=== PATIENT | female | born 1995 | race Caucasian/White ===

== ENCOUNTER → 2017-08-28 | Outpatient (CLI) | payer OTHER ==
[2014-11-20 13:53] VITALS: BP 133/68
[~2017-08-28] MED LIST: DEXT30TA2 PO; MEDR150V IM
== END | disposition home or self-care (01) ==
LOC: LAB 10:31
DX: N92.1 Excessive and frequent menstruation with irregular cycle (principal)
CPT/HCPCS: 36415; 84702

== ENCOUNTER → 2017-09-03 | Outpatient (CLI) | payer OTHER ==
[2014-11-20 13:53] VITALS: BP 133/68
== END | disposition home or self-care (01) ==
LOC: LAB 07:45
DX: N92.1 Excessive and frequent menstruation with irregular cycle (principal)
CPT/HCPCS: 36415; 84702

== ENCOUNTER 2018-04-02 11:52 | Emergency (ER) | payer OTHER | END 2018-04-02 13:08 | disposition home or self-care (01) | LOC: ER 11:52 | DX: S43.102A Unspecified dislocation of left acromioclavicular joint, initial encounter (principal); X50.0XXA Overexertion from strenuous movement or load, initial encounter; Y93.89 Activity, other specified; Y99.8 Other external cause status; Y92.89 Other specified places as the place of occurrence of the external cause | CPT/HCPCS: 99282 ==

== ENCOUNTER → 2018-10-17 | Outpatient (CLI) | payer OTHER ==
[2018-04-02 12:33] VITALS: BP 141/78
[~2018-10-17] MED LIST changes: +NAPR-514 PO
[2018-10-17 15:41] LABS: BASO # 0.1 x10^3/uL (0.0-0.2); BASO % 0 % (0-3); EOS # 0.2 x10^3/uL (0.0-0.7); EOS % 1 % (0-3); HEMOGLOBIN 12.7 g/dL (12.0-15.5); LYMPH # 2.7 x10^3/uL (1.0-4.8); LYMPH % 15 % (24-48); MEAN CORPUSCULAR HEMOGLOBIN 30 pg (25-35); MEAN CORPUSCULAR HGB CONC 34 g/dL (31-37); MEAN CORPUSCULAR VOLUME 87 fL (79-100); MONO # 1.1 x10^3/uL (0.0-1.1); MONO % 6 % (0-9); NEUT # 13.9 x10^3uL (1.8-7.7); NEUT % 78 % (31-73); PLATELET COUNT 234 x10^3/uL (140-400); RED BLOOD COUNT 4.27 x10^6/uL (3.50-5.40); RED CELL DISTRIBUTION WIDTH 13.9 % (11.5-14.5); WHITE BLOOD COUNT 17.9 x10^3/uL (4.0-11.0)
[2018-10-17 17:03] LABS: % EOS 1 % (0-5); % LYMPHS 25 % (24-48); % MONOS 6 % (0-10); % SEGS 68 % (35-66)
[2018-10-17 17:13] LABS: PLT ESTIMATE ADEQUATE (ADEQUATE)
== END | disposition home or self-care (01) ==
LOC: LAB 14:13
PROVIDERS: ATTEND Obstetrics & Gynecology
DX: O36.0120 Maternal care for anti-D [Rh] antibodies, second trimester, not applicable or unspecified (principal); Z3A.00 Weeks of gestation of pregnancy not specified
CPT/HCPCS: 36415; 82947; 82950; 85007; 85025; 86850; 86900; 86901; 96372; J2791

== ENCOUNTER 2018-12-18 11:05 | Observation (INO) | payer OTHER ==
[2018-04-02 12:33] VITALS: BP 141/78
[2018-12-18 12:13] LABS: BASO % 0 % (0-3); EOS # 0.1 x10^3/uL (0.0-0.7); EOS % 1 % (0-3); HEMATOCRIT 37.3 % (36.0-47.0); HEMOGLOBIN 12.3 g/dL (12.0-15.5); LYMPH # 2.2 x10^3/uL (1.0-4.8); LYMPH % 15 % (24-48); MEAN CORPUSCULAR HEMOGLOBIN 28 pg (25-35); MEAN CORPUSCULAR HGB CONC 33 g/dL (31-37); MEAN CORPUSCULAR VOLUME 84 fL (79-100); MONO # 1.2 x10^3/uL (0.0-1.1); MONO % 8 % (0-9); NEUT # 11.2 x10^3uL (1.8-7.7); NEUT % 76 % (31-73); PLATELET COUNT 229 x10^3/uL (140-400); RED BLOOD COUNT 4.43 x10^6/uL (3.50-5.40); WHITE BLOOD COUNT 14.7 x10^3/uL (4.0-11.0)
[2018-12-18 12:33] LABS: ALBUMIN 2.3 g/dL (3.4-5.0); ALBUMIN/GLOBULIN RATIO 0.6 (1.0-1.7); CALCIUM 9.1 mg/dL (8.5-10.1); CREATININE 0.5 mg/dL (0.6-1.0); GFR 154.3; POTASSIUM 3.6 mmol/L (3.5-5.1); TOTAL BILIRUBIN 0.3 mg/dL (0.2-1.0); URIC ACID 3.7 mg/dL (2.6-6.0)
== END 2018-12-18 13:05 | disposition home or self-care (01) ==
LOC: 3 SO LND 11:05
PROVIDERS: ADMIT Obstetrics & Gynecology; ATTEND Obstetrics & Gynecology
DX: Z34.93 Encounter for supervision of normal pregnancy, unspecified, third trimester (principal); Z3A.37 37 weeks gestation of pregnancy
CPT/HCPCS: 36415; 80053; 84550; 85025; G0378; G0379

== ENCOUNTER 2018-12-25 11:11 | Inpatient (IN) | payer OTHER ==
[~2018-12-25] VITALS: Ht 172.7 cm; Wt 104.3 kg
[2018-12-25] MEDS ORDERED: LIDOCAINE 1% PF 30 ML VIAL. INJ PRN (11:45)
[2018-12-25] MEDS ORDERED: 0.9 % SODIUM CHLORIDE 10 ML DISP.SYRIN. IV PRN ×2 (11:45→19:15)
[2018-12-25] MEDS ORDERED: OXYTOCIN 30 UNIT/500 ML PREMIX 500 ML IV PRN ×3 (11:45→19:15)
[2018-12-25 12:15] LABS: BILIRUBIN,URINE NEGATIVE (NEG); CLARITY,URINE CLEAR; COLOR,URINE YELLOW; NITRITE,URINE NEGATIVE (NEG); PROTEIN,URINE NEGATIVE (NEG-TRACE)
--- NOTE | 2018-12-25 12:16 | PDOC1 ---
OB - History Hx of Present Care: Good Care Ultrasounds: Normal mid trimester US Obstetrical Complications: Gestational Hypertension Medical Complications: None Past Family/Social History * Past Medical, Surgical, Family and Obstetric Histories reviewed from chart. Rubella: Immune RPR/VDRL: Negative GBS Status: Negative HBsAG: Negative OB - Chief Complaint & HPI Date of Admission: Date of Admission: Dec 25, 2018 at 11:11 Chief Complaint/History : 2 Para: 0 EGA: 38 Reason for admission: induction of labor (Gestational HTN) Indication for induction: other (Gestational HTN) Admission Nurse Assessment Rev: Yes OB - Admission Exam Physical Exam HEENT: Normal Heart: Regular Rate Lungs: Clear Abdomen: Gravid, Non tender, Soft Extremities: Edema Reflexes: Normal Cervical Dilatation: 3cm Effacement: 75% Station: -3 Membranes: Intact Heart Rate: Normal Accelerations: Accelerations Present Decelerations: No decelerations Contractions on Admission: >10 Minutes Apart Intensity: Mild Text A: 38 wks IUP Gestational HTN Nicotine addiction P: Admit for IOL secondary Gestational HTN. Start Pitocin. Check labs for possible preeclampsia. WALTER CHANDLER Jr, MD Dec 25, 2018 12:16
[2018-12-25 12:25] LABS: BASO % 0 % (0-3); EOS # 0.2 x10^3/uL (0.0-0.7); EOS % 2 % (0-3); HEMATOCRIT 37.6 % (36.0-47.0); HEMOGLOBIN 12.5 g/dL (12.0-15.5); LYMPH # 2.7 x10^3/uL (1.0-4.8); LYMPH % 19 % (24-48); MEAN CORPUSCULAR HEMOGLOBIN 28 pg (25-35); MEAN CORPUSCULAR HGB CONC 33 g/dL (31-37); MEAN CORPUSCULAR VOLUME 84 fL (79-100); MONO # 1.1 x10^3/uL (0.0-1.1); MONO % 8 % (0-9); NEUT # 10.2 x10^3uL (1.8-7.7); NEUT % 71 % (31-73); PLATELET COUNT 245 x10^3/uL (140-400); RED BLOOD COUNT 4.45 x10^6/uL (3.50-5.40); RED CELL DISTRIBUTION WIDTH 14.1 % (11.5-14.5); WHITE BLOOD COUNT 14.3 x10^3/uL (4.0-11.0)
[2018-12-25] MEDS: IV RINGERS,LACTATED 1000ML 1,000 ML IV PRN ×2 (12:25→14:55)
[2018-12-25 12:26] LABS: SQUAMOUS EPITHELIAL CELL,UR MANY /LPF
[2018-12-25 12:27] LABS: BACTERIA,URINE MANY /HPF (0-FEW); WBC,URINE 20-40 /HPF (0-4)
[2018-12-25 12:31] LABS: CALCIUM 9.6 mg/dL (8.5-10.1); CREATININE 0.5 mg/dL (0.6-1.0); GFR 154.3; POTASSIUM 4.1 mmol/L (3.5-5.1)
[2018-12-25 12:38] LABS: ALBUMIN 2.5 g/dL (3.4-5.0); ALBUMIN/GLOBULIN RATIO 0.7 (1.0-1.7); TOTAL BILIRUBIN 0.2 mg/dL (0.2-1.0); TOTAL PROTEIN 5.9 g/dL (6.4-8.2)
[2018-12-25] MEDS ORDERED: PANTOPRAZOLE IV PUSH 40 MG VIAL. IVP PRN (12:45)
[2018-12-25] MEDS ORDERED: PANTOPRAZOLE IV PUSH 40 MG VIAL. IVP ONE (13:00)
[2018-12-25] MEDS: fentaNYL PF VIAL 100 MCG/2 ML VIAL IV PRN ×2 (14:06→15:16)
[2018-12-25] MEDS ORDERED: ePHEDrine PF IN SALINE 50 MG/5 ML DISP.SYRIN IV PRN (14:45)
[2018-12-25] MEDS ORDERED: fentaNYL PF VIAL 100 MCG/2 ML VIAL EPI ONE (14:45)
[2018-12-25] MEDS ORDERED: ONDANSETRON PF 4 MG/2 ML VIAL. IV PRN (14:45)
[2018-12-25] MEDS ORDERED: NALOXONE 0.4 MG/ML VIAL. IV PRN (14:45)
[2018-12-25] MEDS ORDERED: ROPIVacaine 0.2% IN 0.9%NACL PF 40 MG/20 ML DISP.SYRIN. ONE ×2 (14:50→15:00)
[2018-12-25] MEDS ORDERED: L&D EPIDURAL SYRINGE 50 ML ONE (14:50)
[2018-12-25] MEDS: L&D EPIDURAL SYRINGE 50 ML EPID PRN ×2 (15:16→18:20)
[2018-12-25 16:08] VITALS: BP 172/95
--- NOTE | 2018-12-25 19:14 | PDOC ---
VAGINAL DELIVERY DATE DATE: 12/25/18 TIME: 19:13 : 2 Para: 1 EGA: 38 VAGINAL DELIVERY: VTX VACCUM ASSISTED: No PLACENTA: Spontaneous 8/9 SEX: Female WEIGHT Weight [pending ] Nuchal Cord: Yes, Times 1 Amniotic Fluid: Clear PAIN: Epidural EPISIOTOMY: No EXTENSION: No EBL 300 ml COMPLICATIONS none CONDITION pt. stable Signs of Intrauterine Infectio: None Shoulder Dystocia: No WALTER CHANDLER Jr, MD Dec 25, 2018 19:14
[2018-12-25] MEDS ORDERED: PHENYLEPH/MINERAL OIL/PETROLAT RECTAL OINTMENT 28GM TUBE. RC PRN (19:15)
[2018-12-25] MEDS ORDERED: IBUPROFEN 400 MG TABLET. PO PRN (19:15)
[2018-12-25] MEDS ORDERED: MAG HYDROX/ALUMINUM HYD/SIMETH 30 ML ORAL.SUSP PO PRN (19:15)
[2018-12-25] MEDS ORDERED: ZOLPIDEM 5 MG TABLET. PO PRN (19:15)
[2018-12-25] MEDS ORDERED: oxyCODONE/APAP 5/325 1 TAB TABLET PO PRN (19:15)
[2018-12-25] MEDS ORDERED: SIMETHICONE 80 MG TAB.CHEW PO PRN (19:15)
[2018-12-25] MEDS ORDERED: MAGNESIUM HYDROXIDE 2,400 MG/30 ML ORAL.SUSP. PO PRN (19:15)
[2018-12-25] MEDS ORDERED: HYDROCORTISONE 1% TOPICAL OINTMENT 30GM TUBE. TP PRN (19:15)
[2018-12-25] MEDS ORDERED: diphenhydrAMINE HCL 25 MG CAPSULE PO PRN (19:15)
[2018-12-25] MEDS ORDERED: BENZOCAINE 20% TOPICAL AEROSOL SPRAY 57GM CAN. TP PRN (19:15)
[2018-12-25] MEDS ORDERED: DOCUSATE SODIUM 100 MG CAPSULE. PO PRN (19:15)
[2018-12-25] MEDS ORDERED: MMR per PROTOCOL. MC PRN (19:15)
[2018-12-25] MEDS ORDERED: ACETAMINOPHEN 325 MG TABLET. PO PRN (19:15)
[2018-12-25 21:09] LABS: UR PROTEIN RD 19.8 mg/dL (Not Estab.)
[2018-12-25] MEDS: IBUPROFEN 400 MG TABLET. PO PRN (22:16)
[2018-12-25 22:45] VITALS: BP 105/56
[2018-12-25 23:45] VITALS: BP 98/47
[2018-12-26] MEDS: IBUPROFEN 400 MG TABLET. PO PRN ×3 (06:16→19:59)
[2018-12-26 06:20] VITALS: BP 95/55
[2018-12-26 07:18] LABS: BASO % 0 % (0-3); EOS # 0.2 x10^3/uL (0.0-0.7); EOS % 1 % (0-3); HEMATOCRIT 36.3 % (36.0-47.0); HEMOGLOBIN 12.2 g/dL (12.0-15.5); LYMPH # 3.8 x10^3/uL (1.0-4.8); LYMPH % 24 % (24-48); MEAN CORPUSCULAR HEMOGLOBIN 28 pg (25-35); MEAN CORPUSCULAR HGB CONC 34 g/dL (31-37); MEAN CORPUSCULAR VOLUME 85 fL (79-100); MONO # 1.5 x10^3/uL (0.0-1.1); MONO % 9 % (0-9); NEUT # 10.2 x10^3uL (1.8-7.7); NEUT % 65 % (31-73); PLATELET COUNT 195 x10^3/uL (140-400); RED BLOOD COUNT 4.29 x10^6/uL (3.50-5.40); RED CELL DISTRIBUTION WIDTH 14.5 % (11.5-14.5); WHITE BLOOD COUNT 15.7 x10^3/uL (4.0-11.0)
[2018-12-26] MEDS ORDERED: FERROUS SULFATE 325 MG TABLET. PO SCH (08:00)
--- NOTE | 2018-12-26 10:05 | PDOC ---
OB Progress Note Date of Service 12/26/18 Time of Evaluation 1004 Notes Pt. feeling well. No complaints. Lab Laboratory Tests Test 12/25/18 11:45 12/25/18 12:07 12/26/18 05:30 Urine Collection Type Unknown Urine Color Yellow Urine Clarity Clear Urine pH 6.0 Urine Specific Ashby 1.020 Urine Protein 19.8 mg/dL (Not Estab.) Urine Glucose (UA) Negative mg/dL (NEG) Urine Ketones (Stick) Negative mg/dL (NEG) Urine Blood Negative (NEG) Urine Nitrite Negative (NEG) Urine Bilirubin Negative (NEG) Urine Urobilinogen Dipstick 1.0 mg/dL (0.2 mg/dL) Urine Leukocyte Esterase Moderate (NEG) Urine RBC 1-2 /HPF (0-2) Urine WBC 20-40 /HPF (0-4) Urine Squamous Epithelial Cells Many /LPF Urine Bacteria Many /HPF (0-FEW) Urine Mucus Marked /LPF Urine Creatinine 131.9 mg/dL (Not Estab.) Urine Protein/Creatinine Ratio 150 mg/g creat (0-200) White Blood Count 14.3 x10^3/uL (4.0-11.0) 15.7 x10^3/uL (4.0-11.0) Red Blood Count 4.45 x10^6/uL (3.50-5.40) 4.29 x10^6/uL (3.50-5.40) Hemoglobin 12.5 g/dL (12.0-15.5) 12.2 g/dL (12.0-15.5) Hematocrit 37.6 % (36.0-47.0) 36.3 % (36.0-47.0) Mean Corpuscular Volume 84 fL (79-100) 85 fL (79-100) Mean Corpuscular Hemoglobin 28 pg (25-35) 28 pg (25-35) Mean Corpuscular Hemoglobin Concent 33 g/dL (31-37) 34 g/dL (31-37) Red Cell Distribution Width 14.1 % (11.5-14.5) 14.5 % (11.5-14.5) Platelet Count 245 x10^3/uL (140-400) 195 x10^3/uL (140-400) Neutrophils (%) (Auto) 71 % (31-73) 65 % (31-73) Lymphocytes (%) (Auto) 19 % (24-48) 24 % (24-48) Monocytes (%) (Auto) 8 % (0-9) 9 % (0-9) Eosinophils (%) (Auto) 2 % (0-3) 1 % (0-3) Basophils (%) (Auto) 0 % (0-3) 0 % (0-3) Neutrophils # (Auto) 10.2 x10^3uL (1.8-7.7) 10.2 x10^3uL (1.8-7.7) Lymphocytes # (Auto) 2.7 x10^3/uL (1.0-4.8) 3.8 x10^3/uL (1.0-4.8) Monocytes # (Auto) 1.1 x10^3/uL (0.0-1.1) 1.5 x10^3/uL (0.0-1.1) Eosinophils # (Auto) 0.2 x10^3/uL (0.0-0.7) 0.2 x10^3/uL (0.0-0.7) Basophils # (Auto) 0.0 x10^3/uL (0.0-0.2) 0.0 x10^3/uL (0.0-0.2) Sodium Level 139 mmol/L (136-145) Potassium Level 4.1 mmol/L (3.5-5.1) Chloride Level 106 mmol/L (98-107) Carbon Dioxide Level 24 mmol/L (21-32) Anion Gap 9 (6-14) Blood Urea Nitrogen 6 mg/dL (7-20) Creatinine 0.5 mg/dL (0.6-1.0) Estimated GFR (Cockcroft-Gault) 154.3 BUN/Creatinine Ratio 12 (6-20) Glucose Level 106 mg/dL (70-99) Calcium Level 9.6 mg/dL (8.5-10.1) Total Bilirubin 0.2 mg/dL (0.2-1.0) Aspartate Amino Transf (AST/SGOT) 20 U/L (15-37) Alanine Aminotransferase (ALT/SGPT) 26 U/L (14-59) Alkaline Phosphatase 166 U/L (46-116) Total Protein 5.9 g/dL (6.4-8.2) Albumin 2.5 g/dL (3.4-5.0) Albumin/Globulin Ratio 0.7 (1.0-1.7) Treponema pallidum Antibody Nonreactive (Nonreactive) Laboratory Tests Test 12/25/18 11:45 12/25/18 12:07 12/26/18 05:30 Urine Collection Type Unknown Urine Color Yellow Urine Clarity Clear Urine pH 6.0 Urine Specific Ashby 1.020 Urine Protein 19.8 mg/dL (Not Estab.) Urine Glucose (UA) Negative mg/dL (NEG) Urine Ketones (Stick) Negative mg/dL (NEG) Urine Blood Negative (NEG) Urine Nitrite Negative (NEG) Urine Bilirubin Negative (NEG) Urine Urobilinogen Dipstick 1.0 mg/dL (0.2 mg/dL) Urine Leukocyte Esterase Moderate (NEG) Urine RBC 1-2 /HPF (0-2) Urine WBC 20-40 /HPF (0-4) Urine Squamous Epithelial Cells Many /LPF Urine Bacteria Many /HPF (0-FEW) Urine Mucus Marked /LPF Urine Creatinine 131.9 mg/dL (Not Estab.) Urine Protein/Creatinine Ratio 150 mg/g creat (0-200) White Blood Count 14.3 x10^3/uL (4.0-11.0) 15.7 x10^3/uL (4.0-11.0) Red Blood Count 4.45 x10^6/uL (3.50-5.40) 4.29 x10^6/uL (3.50-5.40) Hemoglobin 12.5 g/dL (12.0-15.5) 12.2 g/dL (12.0-15.5) Hematocrit 37.6 % (36.0-47.0) 36.3 % (36.0-47.0) Mean Corpuscular Volume 84 fL (79-100) 85 fL (79-100) Mean Corpuscular Hemoglobin 28 pg (25-35) 28 pg (25-35) Mean Corpuscular Hemoglobin Concent 33 g/dL (31-37) 34 g/dL (31-37) Red Cell Distribution Width 14.1 % (11.5-14.5) 14.5 % (11.5-14.5) Platelet Count 245 x10^3/uL (140-400) 195 x10^3/uL (140-400) Neutrophils (%) (Auto) 71 % (31-73) 65 % (31-73) Lymphocytes (%) (Auto) 19 % (24-48) 24 % (24-48) Monocytes (%) (Auto) 8 % (0-9) 9 % (0-9) Eosinophils (%) (Auto) 2 % (0-3) 1 % (0-3) Basophils (%) (Auto) 0 % (0-3) 0 % (0-3) Neutrophils # (Auto) 10.2 x10^3uL (1.8-7.7) 10.2 x10^3uL (1.8-7.7) Lymphocytes # (Auto) 2.7 x10^3/uL (1.0-4.8) 3.8 x10^3/uL (1.0-4.8) Monocytes # (Auto) 1.1 x10^3/uL (0.0-1.1) 1.5 x10^3/uL (0.0-1.1) Eosinophils # (Auto) 0.2 x10^3/uL (0.0-0.7) 0.2 x10^3/uL (0.0-0.7) Basophils # (Auto) 0.0 x10^3/uL (0.0-0.2) 0.0 x10^3/uL (0.0-0.2) Sodium Level 139 mmol/L (136-145) Potassium Level 4.1 mmol/L (3.5-5.1) Chloride Level 106 mmol/L (98-107) Carbon Dioxide Level 24 mmol/L (21-32) Anion Gap 9 (6-14) Blood Urea Nitrogen 6 mg/dL (7-20) Creatinine 0.5 mg/dL (0.6-1.0) Estimated GFR (Cockcroft-Gault) 154.3 BUN/Creatinine Ratio 12 (6-20) Glucose Level 106 mg/dL (70-99) Calcium Level 9.6 mg/dL (8.5-10.1) Total Bilirubin 0.2 mg/dL (0.2-1.0) Aspartate Amino Transf (AST/SGOT) 20 U/L (15-37) Alanine Aminotransferase (ALT/SGPT) 26 U/L (14-59) Alkaline Phosphatase 166 U/L (46-116) Total Protein 5.9 g/dL (6.4-8.2) Albumin 2.5 g/dL (3.4-5.0) Albumin/Globulin Ratio 0.7 (1.0-1.7) Treponema pallidum Antibody Nonreactive (Nonreactive) Medications Current Medications Sodium Chloride (Normal Saline Flush) 3 ml QSHIFT PRN IV AFTER MEDS AND BLOOD DRAWS; Start 12/25/18 at 11:45 Ringer's Solution 1,000 ml @ 125 mls/hr Q8H PRN IV PER PROTOCOL Last administered on 12/25/18at 14:55; Start 12/25/18 at 11:45 Fentanyl Citrate (Fentanyl 2ml Vial) 100 mcg PRN Q30MIN PRN IV Severe pain Last administered on 12/25/18at 15:16; Start 12/25/18 at 11:45 Lidocaine HCl (Xylocaine 1% Pf 30ml Vial) 30 ml 1X PRN PRN INJ SEE COMMENTS; Start 12/25/18 at 11:45; Stop 12/27/18 at 11:44 Oxytocin/Sodium Chloride 500 ml @ 0 mls/hr CONT PRN IV SEE I/O RECORD Last administered on 12/25/18at 12:23; Start 12/25/18 at 11:45 Oxytocin/Sodium Chloride 500 ml @ 0 mls/hr CONT PRN PRN IV Post delivery bleeding; Start 12/25/18 at 11:45 Ibuprofen (Motrin) 800 mg PRN Q6HRS PRN PO PAIN Last administered on 12/26/18at 06:16; Start 12/25/18 at 11:45 Pantoprazole Sodium (PROTONIX VIAL for IV PUSH) 40 mg 1X ONCE IVP Last administered on 12/25/18at 13:08; Start 12/25/18 at 13:00; Stop 12/25/18 at 13:01 ; Status DC Pantoprazole Sodium (PROTONIX VIAL for IV PUSH) 40 mg PRN DAILY PRN IVP HEARTBURN / GAS; Start 12/25/18 at 12:45 Ephedrine Sulfate (ePHEDrine PF IN SALINE SYRINGE) 10 mg PRN Q2MIN PRN IV IF SBP<90; Start 12/25/18 at 14:45 Naloxone HCl (Narcan) 0.04 mg PRN Q1MIN PRN IV SEE COMMENTS; Start 12/25/18 at 14:45 Fentanyl Citrate (Fentanyl 2ml Vial) 100 mcg 1X ONCE EPI ; Start 12/25/18 at 14 :45; Stop 12/25/18 at 14:49; Status DC Ropivacaine/ Fentanyl/NS 50 ml @ 14 mls/hr CONT PRN EPID PAIN Last administered on 12/25/18at 18:20; Start 12/25/18 at 15:00 Ondansetron HCl (Zofran) 4 mg PRN Q6HRS PRN IV NAUSEA/VOMITING; Start 12/25/18 at 14:45 Ropivacaine/ Sodium Chloride (ROPIVacaine 0.2% - 0.9%NACL PF) 40 mg STK-MED ONCE .ROUTE ; Start 12/25/18 at 14:50; Stop 12/25/18 at 14:52; Status DC Ropivacaine/ Fentanyl/NS 50 ml @ As Directed STK-MED ONCE .ROUTE ; Start at 14:50; Stop 12/25/18 at 14:52; Status DC Sodium Chloride (Normal Saline Flush) 10 ml QSHIFT PRN IV AFTER MEDS AND BLOOD DRAWS; Start 12/25/18 at 19:15 Oxytocin/Sodium Chloride 500 ml @ 62.5 mls/hr CONT PRN IV SEE I/O RECORD; Start 12/25/18 at 19:15; Stop 12/26/18 at 03:14; Status DC Acetaminophen (Tylenol) 650 mg PRN Q6HRS PRN PO MILD PAIN / TEMP; Start at 19:15 Ibuprofen (Motrin) 800 mg PRN Q8HRS PRN PO INFLAMMATION/PAIN PREVENTION; Start 12/25/18 at 19:15 Docusate Sodium (Colace) 100 mg PRN BID PRN PO CONSTIPATION; Start 12/25/18 at 19:15 Magnesium Hydroxide (Milk Of Magnesia) 2,400 mg PRN DAILY PRN PO CONSTIPATION 2ND CHOICE; Start 12/25/18 at 19:15 Al Hydroxide/Mg Hydroxide (Mylanta Plus Xs) 30 ml PRN Q4HRS PRN PO HEARTBURN / GAS; Start 12/25/18 at 19:15 Simethicone (Gas-X) 80 mg PRN AFTMEALHC PRN PO GAS / BLOATING; Start 12/25/18 at 19:15 Diphenhydramine HCl (Benadryl) 25 mg PRN Q6HRS PRN PO ITCHING; Start 12/25/18 at 19:15 Benzocaine (Americaine) 1 spray PRN QID PRN TP TOPICAL PAIN Last administered on 12/25/18at 22:15; Start 12/25/18 at 19:15 Phenyleph/Shark Oil/Min Oil/Petrol (Preparation H) 1 junior PRN QID PRN RC RECTAL PAIN; Start 12/25/18 at 19:15 Hydrocortisone (Cortaid) 1 junior PRN QID PRN TP PERINEAL PAIN; Start 12/25/18 at 19:15 Ferrous Sulfate (Feosol) 325 mg BIDWMEALS PO ; Start 12/26/18 at 08:00 Zolpidem Tartrate (Ambien) 5 mg PRN QHS PRN PO INSOMNIA, MAY REPEAT X1; Start 12/25/18 at 19:15 Info (Do NOT chart on this placeholder) 1 ea 1X PRN PRN MC SEE COMMENTS; Start 12/25/18 at 19:15 Info (Do NOT chart on this placeholder) 1 ea 1X PRN PRN MC SEE COMMENTS; Start 12/25/18 at 19:15 Oxycodone/ Acetaminophen (Percocet 5/325) 2 tab PRN Q4HRS PRN PO MODERATE PAIN , SEVERE PAIN; Start 12/25/18 at 19:15 Ropivacaine/ Sodium Chloride (ROPIVacaine 0.2% - 0.9%NACL PF) 40 mg STK-MED ONCE .ROUTE ; Start 12/25/18 at 15:00; Stop 12/26/18 at 08:24; Status DC Active Scripts Active Naproxen 500 Mg Tablet 1 Tab PO BID PRN Reported Depo-Provera (Medroxyprogesterone Acetate) 150 Mg/1 Ml Vial 150 Mg IM [id number] Adderall 30 Mg Tablet (Dextroamphetamine/Amphetamine) 30 Mg Tablet 30 Mg PO BID Exam ABd: soft, non tender, fundus firm Assessment PPD#1 s/p Plan of Care: Continue current Tx, Mgmt WALTER CHANDLER Jr, MD Dec 26, 2018 10:05
[2018-12-26 11:30] VITALS: BP 112/62
[2018-12-26 21:30] VITALS: BP 123/82
[2018-12-27] MEDS: IBUPROFEN 400 MG TABLET. PO PRN (05:21)
[2018-12-27 05:25] VITALS: BP 135/83
[2018-12-27 12:00] VITALS: BP 128/84
--- NOTE | 2018-12-27 12:00 | PDOC3 ---
OB DISCHARGE SUMMARY DATE OF ADMISSION: 12/25/18 DATE OF DISCHARGE: 12/27/18 REASON FOR ADMISSION: Induction of labor (gestational HTN) INTRAPARTUM PROCEDURES: Spontanous Vag Deliv DISCHARGE DIAGNOSIS: Term Delivered (Gestational HTN) DISCHARGE INFORMATION: Activity (ad estephania), Diet (regular), Instructions (pelvic rest x 6 wks) HOSPITAL COURSE Term gestation with gestational HTN delivered vaginally without complications. WALTER CHANDLER Jr, MD Dec 27, 2018 12:00
--- NOTE | 2018-12-27 12:01 | DISCH ---
DISCHARGE INSTRUCTIONS Condition on Discharge Condition on Discharge: Stable Activity After Discharge Activity Instructions for Disc: Activity as tolerated Lifting Instructions after Dis: No heavy lifting Driving Instructions after Dis: Do not drive today Diet after Discharge Diet after Discharge: Regular Contacting the DRInes after DC Call your doctor for: If your condition worsens Follow-Up Follow up with: Dr. Vick in 6 wks WALTER VICK Jr, MD Dec 27, 2018 12:01
[2018-12-27] MEDS ORDERED: IBUP-1027 PO (12:02)
[2018-12-27 16:00] VITALS: BP 110/78
== END 2018-12-27 16:07 | disposition home or self-care (01) | DRG 805 ==
LOC: 3 SO LND 11:11 → 3 NORTH 21:45
PROVIDERS: ADMIT Obstetrics & Gynecology; ATTEND Obstetrics & Gynecology
PROC: 10E0XZZ Delivery of Products of Conception, External Approach (ICD-10-PCS; principal; 2018-12-25)
PROC: 3E0R3BZ Introduction of Anesthetic Agent into Spinal Canal, Percutaneous Approach (ICD-10-PCS; 2018-12-25)
PROC: 00HU33Z Insertion of Infusion Device into Spinal Canal, Percutaneous Approach (ICD-10-PCS; 2018-12-25)
DX: O13.4 Gestational [pregnancy-induced] hypertension without significant proteinuria, complicating childbirth (principal); E43 Unspecified severe protein-calorie malnutrition; Z37.0 Single live birth; O99.334 Smoking (tobacco) complicating childbirth; F17.200 Nicotine dependence, unspecified, uncomplicated; O69.81X0 Labor and delivery complicated by cord around neck, without compression, not applicable or unspecified; Z3A.38 38 weeks gestation of pregnancy
CPT/HCPCS: 36415; 80053; 81001; 82570; 84156; 85025; 86592; 86850; 86900; 86901; 87086; C9113; J2590; J2795; J3010; J7120